=== PATIENT | male | born 1960 | race Caucasian/White ===

== ENCOUNTER 2016-10-19 12:49 | Inpatient (IN) | payer MEDICAID ==
--- NOTE | 2016-10-19 13:27 | ED Physician Chart ---
Chief Complaint/HPI - Patient Information Date Seen:: 10/19/16 Time Seen:: 13:23 Chief Complaint:: WEAKNESSS IN BOTH LEGS, GOT LOST IN [place] History of Present Illness:: This 56-year-old male was brought in by EMS with the chief complaint of weakness in both legs and confusion. One week ago the patient was admitted to a hospital in [place] with the same complaints. He spent the week in the hospital and was discharged yesterday with a walker. The patient has very poor memory of what tests were done and has no idea of the discharge diagnosis. Upon leaving the hospital he was taken to [facility] at the [facility] border. His car had been left there. He then proceeded to drive home and he made it to [place]. His home is in [place] and he is very confused about the sequence of events. He had been stopped by [place] police and EMS was called and they brought him to the hospital. Patient has a past medical history of COPD and prediabetes. He denies any recent head injury, chest pain or abdominal pain. He has no respiratory distress, nausea, vomiting or history of falls. Review of Systems - Review of Systems General/Constitutional: No fever, No chills, Weakness, Diaphoresis Skin: Rash ( The patient has a history of eczema with the main involvement in his feet.) Head: No headache, No light-headedness Eyes: No loss of vision, No diplopia ENT: No earache, No sore throat, No tinnitus Neck: No neck pain, No stiffness, No mass noted Cardio Vascular: No chest pain, No palpitations, No edema Pulmonary: No SOB, No cough, No sputum GI: No nausea, No vomiting, No diarrhea, No pain G/U: No dysuria, No frequency, No hematuria Musculoskeletal: Bone or joint pain, No back pain, No muscle pain Endocrine: No polyuria, No polydipsia Psychiatric: Prior psych history, No depression, No suicidal ideation, No auditory hallucination Hematopoietic: No bruising, No lymphadenopathy Allergic/Immuno: No urticaria, No angioedema Neurological: No syncope, Weakness, No paresthesia, No headache, Confusion Past Medical History - Past Medical History Past Medical History: Asthma/COPD, Other ( History of eczema.) Social History: Smoker ( One half pack of cigarettes per day.), Alcohol ( 2 to 3 beers per day.), No Drug Use, , Lives Alone, Employed ( restaurant front manager.) Surgical History: None Family Medical History - Family Member Mother History Unknown: Yes Physical Exam - Physical Examination General/Constitutional: Awake, Well-developed, well-nourished, Alert, No distress, Non-toxic appearing Other Gen/Cons comments:: The patient was able to stand alone. When he attempted to walk his gait was very white based and unsteady. He was unable to take more than 1 to 2 steps without assistance. Head: Atraumatic Eyes: Lids, conjuctiva normal, PERRL Other Eyes comments:: The patient had Arcus for both eyes. There was mild horizontal nystagmus upon gays to both the left and the right. The sclera were anicteric. Other Skin comments:: Extensive eczema involving both feet. ENMT: External ears, nose nl, Nasal exam nl, Oropharynx nl ( Dental hygiene was poor and the patient is missing 4 teeth) Neck: Nontender, Full ROM w/o pain, No JVD, No nuchal rigidity, No mass Respiratory: Nl effort/Exclusion Other Respiratory comments:: no respiratory distress with occasional wheezes. Cardio Vascular: RRR, No murmur, gallop, rubs, NL S1 S2 ( Excellent pulses in all four extremities.) GI: No tenderness/rebounding/guarding, No organomegaly, No hernia, Normal BS's, Nondistended, No mass/bruits, No McBurney tenderness Other GI comments:: Rectal examination was deferred at my discretion. : No CVA tenderness, NL external genitalia Extremities: No tenderness or effusion, Full ROM Other Extremities comments:: The patient had good seconds grader strength in both upper extremities. He was able to lift both legs to about 2 feet off the gurney. Sensation was intact to light touch. The patient was oriented times three and he thought that the date was October 20. He was cooperative and pleasant but somewhat confused. Neuro/Psych: Mood normal ( Gait was extremely unsteady.) Labs/Radiology/EKG Results - Lab Results Results: Laboratory Tests 10/19/16 10/19/16 10/19/16 14:12 14:12 17:55 WBC 7.1 RBC 4.01 L Hgb 14.5 Hct 42.9 MCV 107.0 H MCH 36.1 H MCHC Differential 33.7 RDW 13.7 Plt Count 231 MPV 7.5 Neutrophils (Manual) 63 Lymphocytes 20 Monocytes 14 H Eosinophils 3 Platelet Estimate ADEQUATE Polychromasia 1+ Macrocytosis 1+ RBC Morph Micro Appear ABNORMAL Sodium 132 L Potassium 4.7 Chloride 102 Carbon Dioxide 26.0 Anion Gap 8.7 BUN 10 Creatinine 1.2 Est GFR ( Amer) > 60.0 Est GFR (Non-Af Amer) > 60.0 BUN/Creatinine Ratio 8.3 Glucose 102 Calcium 10.2 Total Bilirubin 0.6 AST 52 H ALT 72 H Alkaline Phosphatase 61 Total Protein 6.9 Albumin 4.3 Globulin 2.6 Albumin/Globulin Ratio 1.7 Urine Source RANDOM Urine Color YELLOW Urine Clarity CLEAR Urine pH 6.0 Ur Specific [place] 1.025 Urine Protein NEGATIVE Urine Glucose (UA) NEGATIVE Urine Ketones NEGATIVE Urine Blood NEGATIVE Urine Nitrate NEGATIVE Urine Bilirubin NEGATIVE Urine Urobilinogen 0.2 Ur Leukocyte Esterase NEGATIVE Urine RBC NONE SEEN Urine WBC 0-2 Ur Epithelial Cells RARE Urine Bacteria OCCASIONAL Urine Mucus FEW 10/20/16 10/20/16 07:20 07:20 WBC 5.3 D RBC 3.66 L Hgb 13.4 Hct 39.8 MCV 108.9 H MCH 36.7 H MCHC Differential 33.7 RDW 13.5 Plt Count 195 MPV 8.4 Neutrophils (Manual) Lymphocytes Monocytes Eosinophils Platelet Estimate Polychromasia Macrocytosis RBC Morph Micro Appear Sodium 135 L Potassium 4.2 Chloride 109 H Carbon Dioxide 22.7 Anion Gap 7.5 BUN 6 L Creatinine 0.8 Est GFR ( Amer) > 60.0 Est GFR (Non-Af Amer) > 60.0 BUN/Creatinine Ratio 7.5 Glucose 105 Calcium 8.9 Total Bilirubin AST ALT Alkaline Phosphatase Total Protein Albumin Globulin Albumin/Globulin Ratio Urine Source Urine Color Urine Clarity Urine pH Ur Specific [place] Urine Protein Urine Glucose (UA) Urine Ketones Urine Blood Urine Nitrate Urine Bilirubin Urine Urobilinogen Ur Leukocyte Esterase Urine RBC Urine WBC Ur Epithelial Cells Urine Bacteria Urine Mucus The CBC was unremarkable. He was mildly hyponatremic with a sodium of 132. The chloride was elevated at 109. The remaining electrolytes were all within normal parameters. Renal function was normal. He had mild elevation of both the ALT and the AST. Assessment - Assessment General Assessment: CASE SUMMARY: this 56-year-old male was brought to the emergency department by EMS with weakness in both legs and confusion. The patient had been discharged yesterday from a hospital in [place]. He was attempting to drive home to [place] when he became disoriented in [place]. On physical examination he was awake and alert and oriented times three. There was no evidence of any recent head injury. The patient was barely able to stand alone without assistance. He was unable to take more than one or two steps without having to be assisted. Physical examination was negative for any focal neurologic deficit. The patient's laboratory studies did not explain his confusion or weakness and lower extremities. I was concerned that the patient had some neurologic problem which I was missing. I discussed the case with and he was admitted to a medical surge bed for further diagnostic evaluation. The patient thought that he was suffering from heat illness and dehydration. He received 2 L of normal saline in the emergency department with no change in his weakness. MDM CONFUSION/WEAKNESS: NOT Dehydration based on physical examination and laboratory results. NOT Heatstroke based on the patient's vital signs. NOT Acute CVA based on the patient's history and physical examination. ED Septic Shock - . Is Septic Shock (SBP<90, OR Lactate>4 mmol\L) present?: No Reassessment (Disposition) - Reassessment Reassessment Condition:: Unchanged - Diagnosis Diagnosis:: CONFUSION, WEAKNESS IN LEGS UNCLEAR ETIOLOGY. - Patient Disposition Discharge/Transfer:: Acute Care w/in this hosp Accepting Physician:: DR. KERR ED Discharge Plan - Patient Disposition Admit/Discharge/Transfer: Acute Care w/in this hosp Condition at Disposition: Stable
[2016-10-19] MEDS ORDERED: Sodium Chloride 0.9% 2,000 ML IV ONE (13:59)
[2016-10-19 14:18] LABS: HEMATOCRIT 42.9 % (39.0-49.0); HEMOGLOBIN 14.5 gm/dL (13.2-17.3); MEAN CORPUSCULAR HEMOGLOBIN 36.1 pg (26.0-30.0); MEAN CORPUSCULAR HGB CONC 33.7 pg (28.0-36.0); MEAN PLATELET VOLUME 7.5 fl; NEUTROPHILE ABSOLUTE 4.2 Th/cmm (1.8-8.0); PLATELET COUNT 231 Th/cmm (150-400); RED BLOOD COUNT 4.01 Mil/cmm (4.30-5.70); RED CELL DISTRIBUTION WIDTH 13.7 % (11.5-20.0); WHITE BLOOD COUNT 7.1 Th/cmm (4.8-10.8)
[2016-10-19 14:35] LABS: ALB/GLOB RATIO 1.7 (1.0-1.8); ALKALINE PHOSPHATASE 61 U/L (34-104); ANION GAP 8.7 (7.0-16.0); BILIRUBIN,TOTAL 0.6 mg/dL (0.3-1.0); BUN - UREA NITROGEN 10 mg/dL (7-25); BUN/CREATININE RATIO 8.3; CALCIUM SERUM 10.2 mg/dL (8.6-10.3); CHLORIDE 102 mEq/L (98-107); CREATININE - SERUM 1.2 mg/dL (0.7-1.3); GLUCOSE 102 mg/dL (70-105); POTASSIUM SERUM 4.7 mEq/L (3.5-5.1); SGOT 52 U/L (13-39); SGPT/ALT 72 U/L (7-52); SODIUM SERUM 132 mEq/L (136-145)
[2016-10-19 15:34] LABS: EOSINOPHIL 3 % (0-5); NEUTROPHILS 63 % (40-80); TOTAL CELLS COUNTED 100
[2016-10-19 15:35] LABS: PLATELET ESTIMATE ADEQUATE (NORMAL); POLYCHROMASIA 1+
[2016-10-19] MEDS ORDERED: Hydrocodone/APAP 5mg/325mg Tab PO PRN (17:56)
[2016-10-19] MEDS ORDERED: Magnesium Hydroxide (MOM) 30 mL UDC PO PRN (17:56)
[2016-10-19] MEDS ORDERED: Maalox 30 mL Cup PO PRN (17:56)
[2016-10-19 18:46] LABS: URINE BILIRUBIN NEGATIVE (NEGATIVE); URINE BLOOD NEGATIVE (NEGATIVE); URINE GLUCOSE (UA) NEGATIVE (NEGATIVE); URINE KETONE NEGATIVE (NEGATIVE); URINE PROTEIN NEGATIVE (NEGATIVE); URINE UROBILINOGEN 0.2 E.U./dL (0.2 - 1.0)
[2016-10-19 18:58] LABS: URINE BACTERIA OCCASIONAL /hpf (NONE SEEN); URINE COLOR YELLOW; URINE EPITHELIAL CELLS RARE /lpf (FEW); URINE RBC NONE SEEN /hpf (0-5); URINE WBC 0-2 /hpf (0-5)
[2016-10-19] MEDS: D5-0.9%NS 1,000 ML IV SCH (21:36)
[2016-10-20 06:11] VITALS: BP 129/89
--- NOTE | 2016-10-20 08:43 | Diagnostic Imaging Report ---
CHEST X-RAY: AP view INDICATION: Pneumonia COMPARISON: None FINDINGS: Mild chronic lung changes are noted. There is no focal consolidation or pleural effusions The heart is normal in size. The osseous structures demonstrate no acute abnormalities. IMPRESSION: No focal consolidation identified.
--- NOTE | 2016-10-20 08:51 | Diagnostic Imaging Report ---
Head CT without intravenous contrast Indication: Altered mental status Comparison: None Technique: Axial images were obtained from the vertex to the skull base without IV contrast. Coronal reconstructions were made. Total DLP: 639, [id number] FINDINGS: Images of the brain obtained without contrast demonstrate no acute hemorrhage. No mass lesions identified. The ventricles and basal cisterns are patent. The mott-white matter differentiation is preserved. There is no mass effect or midline shift. Mild atrophy is noted. There is minimal fluid in the bilateral mastoid air cells. No skull fractures identified. No soft tissue swelling. The paranasal sinuses are clear. IMPRESSION: No acute intracranial abnormality. Mild atrophy. Minimal fluid within the bilateral mastoid air cells.
[2016-10-20] MEDS: D5-0.9%NS 1,000 ML IV SCH ×2 (08:56→22:06)
[2016-10-20 09:05] LABS: ANION GAP 7.5 (7.0-16.0); BUN - UREA NITROGEN 6 mg/dL (7-25); BUN/CREATININE RATIO 7.5; CALCIUM SERUM 8.9 mg/dL (8.6-10.3); CARBON DIOXIDE 22.7 mEq/L (21.0-31.0); CHLORIDE 109 mEq/L (98-107); CREATININE - SERUM 0.8 mg/dL (0.7-1.3); GLUCOSE 105 mg/dL (70-105); POTASSIUM SERUM 4.2 mEq/L (3.5-5.1); SODIUM SERUM 135 mEq/L (136-145)
[2016-10-20 09:34] LABS: HEMATOCRIT 39.8 % (39.0-49.0); HEMOGLOBIN 13.4 gm/dL (13.2-17.3); MEAN CORPUSCULAR HEMOGLOBIN 36.7 pg (26.0-30.0); MEAN CORPUSCULAR HGB CONC 33.7 pg (28.0-36.0); MEAN PLATELET VOLUME 8.4 fl; PLATELET COUNT 195 Th/cmm (150-400); RED BLOOD COUNT 3.66 Mil/cmm (4.30-5.70); RED CELL DISTRIBUTION WIDTH 13.5 % (11.5-20.0)
[2016-10-20 09:36] LABS: WHITE BLOOD COUNT 5.3 Th/cmm (4.8-10.8)
[2016-10-20 10:20] LABS: MEAN CELL VOLUME 108.9 fl (80-99)
[2016-10-20 11:27] LABS: BASOPHIL 1 % (0-3); EOSINOPHIL 3 % (0-5); NEUTROPHILS 48 % (40-80); TOTAL CELLS COUNTED 100
[2016-10-20 11:28] LABS: PLATELET ESTIMATE ADEQUATE (NORMAL); PLATELET MORPHOLOGY PLATELET CLUMPS SEEN (NORMAL)
--- NOTE | 2016-10-20 13:07 | History & Physical ---
ADMIT DATE: 10/20/2016 CHIEF COMPLAINT: Weakness in both leg and confusion. HISTORY OF PRESENT ILLNESS: The patient is a 56-year-old male brought in by EMS with ____ in both legs and confusion. The patient was previously admitted in hospital in [place] with same complaints. The patient spent a week there and was discharged day before admission with walker. Upon discharge from the [facility], the patient was taking to ____ [facility]. The patient ____ from there ____ [place]. The patient lives in [place] and is very confused about ____. The patient was stopped by [place] Police and EMS was called and the [place] [facility] The patient denies other complaints. REVIEW OF SYSTEMS: See history of present illness. PAST MEDICAL HISTORY: Asthma/COPD, eczema. SOCIAL HISTORY: Positive tobacco use. The patient smokes 1 pack of cigarettes per day. Positive alcohol use. The patient drinks 2 or 3 beers a day. Denies any IV drug use. The patient lives alone. FAMILY HISTORY: Noncontributory. PHYSICAL EXAMINATION: GENERAL: The patient is awake, alert, nontoxic in appearance. VITAL SIGNS: On admission, temperature 98.4, pulse 95, blood pressure 123/85, respiration 18 and O2 sat 100% on room air. HEENT: Normocephalic, atraumatic. Extraocular movements intact. Oropharynx is clear. Dental hygiene is poor. The patient missing 4 teeth. NECK: Supple. No thyromegaly. No lymphadenopathy. RESPIRATORY: Normal effort, occasional wheezes. CARDIOVASCULAR: S1, S2. No murmurs, rubs, gallops. GASTROINTESTINAL: Soft, nontender, nondistended, positive bowel sounds. GENITOURINARY: No CVA tenderness. No suprapubic tenderness. BACK: No midline tenderness. EXTREMITIES: Equal pulses bilaterally. No cyanosis, clubbing or edema. SKIN: Negative. PSYCHIATRIC: Negative. NEUROLOGIC: Cranial nerves 2-12 intact. Extraocular movements intact. Sensation intact. The patient has a gait that is wide based, enough steady. LABORATORY DATA: On admission, hematology, WBC 7.1, hemoglobin 14.5, hematocrit ____, platelet count of 231, 14% monocytes. Chemistry: Sodium 132, potassium 4.7, chloride 102, bicarbonate 26, anion gap 8.7, BUN 10, creatinine ____, GFR is more than 60. Glucose is 102, calcium 10.2, total bili 0.6, AST 52, ALT 72, alk phos 61, total protein 6.9, albumin 4.3, globulin 2.6. Urinalysis negative. RADIOLOGY: Chest x-ray shows no focal consolidation identified. CT of the head, no acute abnormality. Mild atrophy. No fluid in the bilateral mastoid air cells. IMPRESSION: 1. Altered mental status. 2. Bilateral lower extremity weakness. 3. Hyponatremia. 4. Transaminitis. PLAN: The patient admitted [place] [facility] Neurology consultation, Dr. Adams. The patient was ordered for inpatient rehab therapy. We will obtain further labs and consultation as needed. JOB# [id number]
[2016-10-21 06:41] LABS: ALB/GLOB RATIO 1.6 (1.0-1.8); ALKALINE PHOSPHATASE 50 U/L (34-104); ANION GAP 6.7 (7.0-16.0); BILIRUBIN,TOTAL 0.5 mg/dL (0.3-1.0); BUN - UREA NITROGEN 6 mg/dL (7-25); BUN/CREATININE RATIO 7.5; CALCIUM SERUM 9.2 mg/dL (8.6-10.3); CARBON DIOXIDE 24.4 mEq/L (21.0-31.0); CHLORIDE 107 mEq/L (98-107); CREATININE - SERUM 0.8 mg/dL (0.7-1.3); GLUCOSE 102 mg/dL (70-105); POTASSIUM SERUM 4.1 mEq/L (3.5-5.1); SGOT 35 U/L (13-39); SGPT/ALT 56 U/L (7-52); SODIUM SERUM 134 mEq/L (136-145)
[2016-10-21 07:24] LABS: % BASOPHILS 2.3 % (0.0-2.0); % EOSINOPHILS 1.9 % (0.0-5.0); % LYMPHOCYTES 29.9 % (20.0-50.0); % MONOCYTES 14.2 % (2.0-10.0); % NEUTROPHILS 51.7 % (40.0-80.0); MEAN CORPUSCULAR HEMOGLOBIN 36.3 pg (26.0-30.0); MEAN CORPUSCULAR HGB CONC 33.3 pg (28.0-36.0); MEAN PLATELET VOLUME 8.4 fl; NEUTROPHILE ABSOLUTE 3.5 Th/cmm (1.8-8.0); PLATELET COUNT 231 Th/cmm (150-400); RED BLOOD COUNT 3.85 Mil/cmm (4.30-5.70); RED CELL DISTRIBUTION WIDTH 13.4 % (11.5-20.0)
[2016-10-21 08:00] LABS: WHITE BLOOD COUNT 6.5 Th/cmm (4.8-10.8)
[2016-10-21] MEDS: Hydrocodone/APAP 10 mg/325 mg Tab PO PRN ×2 (09:13→15:48)
[2016-10-21] MEDS: D5-0.9%NS 1,000 ML IV SCH ×2 (09:36→20:11)
--- NOTE | 2016-10-21 22:21 | Progress Notes ---
DATE: 10/21/2016 SUBJECTIVE: The patient is awake and alert. The patient had elevated blood pressure today. Awaiting evaluation and clearance by Neurology. OBJECTIVE: VITAL SIGNS: Temperature 98.1, pulse 68 and blood pressure , respiration 20, and O2 sat 98% on room air. CARDIOVASCULAR: S1 and S2. RESPIRATORY: Clear. GASTROINTESTINAL: Abdomen is soft. Positive bowel sounds. LABORATORY DATA: Hematology WBC 6.5, hemoglobin 14.0, hematocrit 42.0, platelet count of 231,000, 14% monocytes, and 2% basophils. Chemistry: Sodium 134, potassium 4.1, chloride 107, bicarb 24, anion gap 6.7 ____, and creatinine 0.8, GFR is 160, glucose 102, calcium 9.2, total bili 0.5. AST 35, ALT 56, alkaline phosphatase is 50, total protein 5.8, albumin 3.6, and globulin 2.2. Microbiology: MRSA screen from 10/19/2016 negative. Blood culture from 10/19/2016 shows no growth. RADIOLOGY: No new results. ASSESSMENT: 1. Hyponatremia. 2. Transaminitis (improved). 3. Hypoalbuminemia. 4. Protein-calorie malnutrition (moderate). 5. Hypertension. 6. Altered mental status (resolved). 7. Bilateral lower extremity weakness (improved). PLAN: Continue current medication and treatment. Obtain labs in a.m. We will start the patient on hydrochlorothiazide for elevated blood pressure. The patient has been started on clonidine on an as needed basis for elevated blood pressure. Continue the patient's rehab therapy. Awaiting Neurology evaluation and clearance. Further recommendation per consultation. JOB# [id number]
[2016-10-22] MEDS: D5-0.9%NS 1,000 ML IV SCH (06:21)
[2016-10-22 07:17] LABS: HEMATOCRIT 40.5 % (39.0-49.0); HEMOGLOBIN 13.6 gm/dL (13.2-17.3); MEAN CORPUSCULAR HEMOGLOBIN 36.4 pg (26.0-30.0); MEAN CORPUSCULAR HGB CONC 33.7 pg (28.0-36.0); MEAN PLATELET VOLUME 8.6 fl; PLATELET COUNT 208 Th/cmm (150-400); RED BLOOD COUNT 3.75 Mil/cmm (4.30-5.70); RED CELL DISTRIBUTION WIDTH 13.1 % (11.5-20.0); WHITE BLOOD COUNT 5.9 Th/cmm (4.8-10.8)
[2016-10-22 07:34] LABS: BUN - UREA NITROGEN 7 mg/dL (7-25); CARBON DIOXIDE 26.1 mEq/L (21.0-31.0); CHLORIDE 107 mEq/L (98-107); CREATININE - SERUM 0.7 mg/dL (0.7-1.3); GLUCOSE 101 mg/dL (70-105); POTASSIUM SERUM 4.1 mEq/L (3.5-5.1); SODIUM SERUM 135 mEq/L (136-145)
[2016-10-22 07:35] LABS: MEAN CELL VOLUME 107.9 fl (80-99)
[2016-10-22 08:24] LABS: BAND NEUTROPHILE 3 % (0-10); NEUTROPHILS 58 % (40-80); PLATELET ESTIMATE ADEQUATE (NORMAL); PLATELET MORPHOLOGY GIANT PLATELETS SEEN (NORMAL); TOTAL CELLS COUNTED 100
--- NOTE | 2016-10-23 08:01 | Consultation ---
DATE OF CONSULTATION: 10/22/2016 NEUROLOGY CONSULT HISTORY OF PRESENT ILLNESS: A 48-year-old male complains of difficulty with confusion. The patient with difficulty walking, unsteadiness. The patient had been in [place]. PAST MEDICAL HISTORY: Asthma, COPD. SOCIAL HISTORY: He does smoke. He does drink. No IV drugs. REVIEW OF SYSTEMS: Twelve point negative except for above. PHYSICAL EXAMINATION: VITAL SIGNS: Temperature 98.2, blood pressure 130/80, pulse is 90. NECK: Supple, no bruits. HEART: Sound S1, S2. LUNGS: Clear. NEUROLOGIC: Awake, alert. ____ answers; he tells me his name, his age, he tells me where he lives. Actually he tells me the day, but he did not know the date. He is able to name simple objects. CRANIAL NERVES: Pupils react to light. Full eye movement. No nystagmus. No facial weakness. MOTOR: He will lift both arms up. Strength is about 4+ to 5. Some tremor. LEGS: He has increased tone with spasticity. The patient's leg strength is about 4+. The patient's reflexes are 2 in the upper extremity, knees are about 3, ankles 1+ to 2. Withdrawal versus Babinski. INVESTIGATIONS: CT scan of the head, no acute process. IMPRESSION: 1. Encephalopathy, better. 2. Cognitive impairment. 3. The patient with ataxia. 4. Leg weakness, somewhat better. 5. The patient with myelopathy. 6. Hyponatremia. PLAN: I will do an MRI cervical spine. We will go ahead and check labs including B12, B1. Physical therapy rehab. JOB# [id number]
[2016-10-23] MEDS: D5-0.9%NS 1,000 ML IV SCH ×2 (08:41→21:12)
--- NOTE | 2016-10-23 13:16 | General Progress Note ---
Subjective - Review of Systems Service Date: 10/23/16 Subjective: Patient is awake and alert. Has been ordered for MRI by Neurology. Receiving inpatient rehab therapy. Objective - Results Result Diagrams: 10/22/16 06:10 10/22/16 06:10 Recent Labs: Laboratory Last Values WBC 5.9 Th/cmm (4.8-10.8) 10/22/16 06:10 RBC 3.75 Mil/cmm (4.30-5.70) L 10/22/16 06:10 Hgb 13.6 gm/dL (13.2-17.3) 10/22/16 06:10 Hct 40.5 % (39.0-49.0) 10/22/16 06:10 MCV 107.9 fl (80-99) H 10/22/16 06:10 MCH 36.4 pg (26.0-30.0) H 10/22/16 06:10 MCHC Differential 33.7 pg (28.0-36.0) 10/22/16 06:10 RDW 13.1 % (11.5-20.0) 10/22/16 06:10 Plt Count 208 Th/cmm (150-400) 10/22/16 06:10 MPV 8.6 fl 10/22/16 06:10 Neutrophils % 51.7 % (40.0-80.0) 10/21/16 05:30 Band Neutrophils % 3 % (0-10) 10/22/16 06:10 Lymphocytes % 29.9 % (20.0-50.0) 10/21/16 05:30 Monocytes % 14.2 % (2.0-10.0) H 10/21/16 05:30 Eosinophils % 1.9 % (0.0-5.0) 10/21/16 05:30 Basophils % 2.3 % (0.0-2.0) H 10/21/16 05:30 Neutrophils (Manual) 58 % (40-80) 10/22/16 06:10 Lymphocytes 27 % (20-50) 10/22/16 06:10 Monocytes 11 % (2-10) H 10/22/16 06:10 Eosinophils 3 % (0-5) 10/20/16 07:20 Basophils 1 % (0-3) 10/20/16 07:20 Atypical Lymphocytes 1 % 10/22/16 06:10 Platelet Estimate ADEQUATE (NORMAL) 10/22/16 06:10 Platelet Morphology GIANT PLATELETS SEEN (NORMAL) 10/22/16 06:10 Polychromasia 1+ 10/19/16 14:12 Macrocytosis 1+ 10/22/16 06:10 RBC Morph Micro Appear ABNORMAL (NORMAL) 10/22/16 06:10 Sodium 135 mEq/L (136-145) L 10/22/16 06:10 Potassium 4.1 mEq/L (3.5-5.1) 10/22/16 06:10 Chloride 107 mEq/L (98-107) 10/22/16 06:10 Carbon Dioxide 26.1 mEq/L (21.0-31.0) 10/22/16 06:10 Anion Gap 6.0 (7.0-16.0) L 10/22/16 06:10 BUN 7 mg/dL (7-25) 10/22/16 06:10 Creatinine 0.7 mg/dL (0.7-1.3) 10/22/16 06:10 Est GFR ( Amer) > 60.0 ml/min (>90) 10/22/16 06:10 Est GFR (Non-Af Amer) > 60.0 ml/min 10/22/16 06:10 BUN/Creatinine Ratio 10.0 10/22/16 06:10 Glucose 101 mg/dL (70-105) 10/22/16 06:10 Calcium 9.0 mg/dL (8.6-10.3) 10/22/16 06:10 Total Bilirubin 0.5 mg/dL (0.3-1.0) 10/21/16 05:30 AST 35 U/L (13-39) 10/21/16 05:30 ALT 56 U/L (7-52) H 10/21/16 05:30 Alkaline Phosphatase 50 U/L (34-104) 10/21/16 05:30 Total Protein 5.8 gm/dL (6.0-8.3) L 10/21/16 05:30 Albumin 3.6 gm/dL (4.2-5.5) L 10/21/16 05:30 Globulin 2.2 gm/dL 10/21/16 05:30 Albumin/Globulin Ratio 1.6 (1.0-1.8) 10/21/16 05:30 TSH 6.20 uIU/ml (0.34-5.60) H 10/23/16 06:06 Urine Source RANDOM 10/19/16 17:55 Urine Color YELLOW 10/19/16 17:55 Urine Clarity CLEAR (CLEAR) 10/19/16 17:55 Urine pH 6.0 (4.6 - 8.0) 10/19/16 17:55 Ur Specific [place] 1.025 (1.005-1.030) 10/19/16 17:55 Urine Protein NEGATIVE mg/dL (NEGATIVE) 10/19/16 17:55 Urine Glucose (UA) NEGATIVE mg/dL (NEGATIVE) 10/19/16 17:55 Urine Ketones NEGATIVE mg/dL (NEGATIVE) 10/19/16 17:55 Urine Blood NEGATIVE (NEGATIVE) 10/19/16 17:55 Urine Nitrate NEGATIVE (NEGATIVE) 10/19/16 17:55 Urine Bilirubin NEGATIVE (NEGATIVE) 10/19/16 17:55 Urine Urobilinogen 0.2 E.U./dL (0.2 - 1.0) 10/19/16 17:55 Ur Leukocyte Esterase NEGATIVE (NEGATIVE) 10/19/16 17:55 Urine RBC NONE SEEN /hpf (0-5) 10/19/16 17:55 Urine WBC 0-2 /hpf (0-5) 10/19/16 17:55 Ur Epithelial Cells RARE /lpf (FEW) 10/19/16 17:55 Urine Bacteria OCCASIONAL /hpf (NONE SEEN) 10/19/16 17:55 Urine Mucus FEW /lpf (FEW) 10/19/16 17:55 - Physical Exam Vitals and I&O: Vital Signs Temp 97.2 F 10/23/16 07:57 Pulse 71 10/23/16 07:57 Resp 20 10/23/16 07:57 BP 129/88 10/23/16 08:42 Pulse Ox 97 10/23/16 07:57 Intake & Output 10/22/16 10/23/16 10/23/16 18:59 06:59 18:59 Intake Total 1000 240 Balance 1000 240 Weight (lbs) 78.216 kg Intake: Intake, IV Amount 1000 D5-0.9%Ns 1,000 ml @ 100 1000 mls/hr IV .Q10H [facility] Rx#: [id number] Oral 240 Other: Stool Characteristics Soft Soft Active Medications: Current Medications Acetaminophen (Tylenol) 650 mg PO Q6H PRN PRN Reason: Mild Pain/Headache/T above 101 Stop: 12/18/16 17:55 Acetaminophen/Hydrocodone Bitart (Perry 10 Mg/325 Mg) 1 tab PO Q6H PRN PRN Reason: Pain (Severe) Stop: 12/18/16 17:55 Last Admin: 10/21/16 15:48 Dose: 1 tab Acetaminophen/Hydrocodone Bitart (Perry 5mg/325mg) 1 tab PO Q6H PRN PRN Reason: Moderate Pain Stop: 12/18/16 17:55 Al Hydrox/Mg Hydrox/Simethicone (Maalox) 30 ml PO Q6H PRN PRN Reason: Dyspepsia Stop: 12/18/16 17:55 Hydrochlorothiazide (Hctz) 25 mg PO DAILY OSMEL Stop: 12/20/16 18:59 Last Admin: 10/23/16 08:42 Dose: 25 mg Dextrose/Sodium Chloride (D5-0.9%Ns) 1,000 mls @ 100 mls/hr IV .Q10H OSMEL Stop: 12/18/16 17:59 Last Admin: 10/23/16 08:41 Dose: 100 mls/hr Lorazepam (Ativan) 1 mg PO Q6H PRN; Protocol PRN Reason: Anxiety/Agitation Stop: 12/18/16 17:55 Magnesium Hydroxide (Milk Of Magnesia) 30 ml PO HS PRN PRN Reason: Constipation Stop: 12/18/16 17:55 Ondansetron HCl (Zofran Odt) 4 mg PO Q6H PRN PRN Reason: Nausea / Vomiting Stop: 12/18/16 17:55 General: Alert, Oriented x3, Cooperative, No acute distress HEENT: Atraumatic, PERRLA, EOMI, Mucous membr. moist/pink Neck: Supple, JVD, Thyromegaly, +2 carotid pulse wo bruit, LAD Cardiovascular: Regular rate, Normal S1, Normal S2 Lungs: Clear to auscultation, Normal air movement Abdomen: Bowel sounds, Soft, no Tender, no Distended Extremities: Other, no Clubbing, no Cyanosis, no Edema, no Tender Neurological: Normal gait, Normal speech, Strength at 5/5 X4 ext, Normal tone, Sensation intact, Cranial nerves 3-12 NL, Reflexes 2+ Skin: Other, no Rash, no Breakdown, no Significant lesion Psych/Mental Status: Mental status NL, Mood NL Assessment/Plan - Problem List Patient Problems: All Active Problems ALTERED MENTAL STATUS; POSSIBLE DEHYDRAT (Acute) - Assessment Assessment: AMS (Resolved) Metabolic Encephalopathy Hypertension Transaminitis Debility - Plan Plan: Continue current meds Continue inpatient rehab Obtain labs in am Awaiting MRI results Awaiting Neurology clearence
--- NOTE | 2016-10-23 13:46 | Diagnostic Imaging Report ---
MRI cervical spine HISTORY: Myelopathy Multiple MR sequences were obtained in the sagittal and axial planes. The exam of the C3-4 level demonstrates a normal disc contour. No extradural abnormalities are seen. The neural foramina appear patent bilaterally. The exam of the C4-5 level demonstrates small spur formation off the anterior margins of these vertebrae. No extradural abnormalities are seen. No significant neural foraminal encroachment. C5-6 level demonstrates a normal disc contour. No extradural abnormalities. Mild hypertrophic changes noted about the facet joints with mild bilateral neural foraminal encroachment. The exam of the C6-7 level demonstrates small spur formation about the vertebral endplates the results in mild extradural indentation on the anterior subarachnoid space. The cervical spinal cord exhibits a normal contour and caliber. No intramedullary abnormalities are seen. The cerebellar tonsils are in a normal position. Bone marrow exhibits normal signal intensity is no significant focal lesions. IMPRESSION: 1. Mild degenerative changes C4-5 and C6-7. 2. No other significant abnormalities
[2016-10-24 07:11] LABS: HEMOGLOBIN 14.6 gm/dL (13.2-17.3); MEAN CORPUSCULAR HEMOGLOBIN 36.5 pg (26.0-30.0); MEAN PLATELET VOLUME 8.8 fl; PLATELET COUNT 214 Th/cmm (150-400); RED BLOOD COUNT 4.01 Mil/cmm (4.30-5.70); RED CELL DISTRIBUTION WIDTH 12.7 % (11.5-20.0); WHITE BLOOD COUNT 6.7 Th/cmm (4.8-10.8)
[2016-10-24 07:30] LABS: MEAN CELL VOLUME 107.3 fl (80-99)
[2016-10-24 07:49] LABS: ANION GAP 7.5 (7.0-16.0); BUN - UREA NITROGEN 11 mg/dL (7-25); BUN/CREATININE RATIO 12.2; CALCIUM SERUM 9.2 mg/dL (8.6-10.3); CARBON DIOXIDE 26.6 mEq/L (21.0-31.0); CHLORIDE 104 mEq/L (98-107); CREATININE - SERUM 0.9 mg/dL (0.7-1.3); GLUCOSE 97 mg/dL (70-105); POTASSIUM SERUM 4.1 mEq/L (3.5-5.1); SODIUM SERUM 134 mEq/L (136-145)
[2016-10-24] MEDS: D5-0.9%NS 1,000 ML IV SCH (08:59)
[2016-10-24 10:40] LABS: NEUTROPHILS 59 % (40-80); PLATELET ESTIMATE ADEQUATE (NORMAL); TOTAL CELLS COUNTED 100
[2016-10-24 10:42] LABS: PLATELET MORPHOLOGY GIANT PLATELETS SEEN (NORMAL)
[2016-10-24 14:22] LABS: FOLIC ACID 4.5 ng/mL (>3.0)
[2016-10-25 09:28] LABS: ALDOLASE 2.9 U/L (3.3-10.3); T4 FREE 0.78 ng/dL (0.82-1.77)
--- NOTE | 2016-11-08 13:14 | Discharge Summary ---
DATE OF DISCHARGE: 10/24/2016 DISCHARGE DIAGNOSES: 1. Altered mental status, resolved. 2. Encephalopathy. 3. Hypertension. 4. Transaminitis. 5. Increased debility. 6. ____ disk disease of cervical spine. HOSPITAL COURSE: The patient is a 56-year-old male who presented to the ER with weakness in both legs and confusion. The patient was admitted with altered mental status, bilateral extremity weakness, hyponatremia, and transaminitis. The patient was initially admitted to telemetry unit at [facility]. Neurology consultation obtained from Dr. Adams. Recommendation from Neurology. The patient obtained MRI of the spine. The patient also obtained B12 and folate levels along with physical therapy. Results of the cervical spine MRI shows moderate disk changes at C4-C5 and C6-C7 levels. HOSPITAL COURSE: The patient is receiving inpatient rehab therapy. After clearance by Neurology, the patient was discharged on 10/24/2016. JOB# [id number]
== END 2016-10-24 15:33 | disposition home or self-care (01) | DRG 52 ==
LOC: ER 12:49 → TELE 18:10
PROVIDERS: ADMIT Preventive Medicine Preventive Medicine/Occupational Environmental Medicine; ATTEND Preventive Medicine Preventive Medicine/Occupational Environmental Medicine
DX: G93.41 Metabolic encephalopathy (principal); E44.0 Moderate protein-calorie malnutrition; E87.1 Hypo-osmolality and hyponatremia; E88.09 Other disorders of plasma-protein metabolism, not elsewhere classified; G95.9 Disease of spinal cord, unspecified; J44.9 Chronic obstructive pulmonary disease, unspecified; I10 Essential (primary) hypertension; R27.0 Ataxia, unspecified; F17.210 Nicotine dependence, cigarettes, uncomplicated; M62.81 Muscle weakness (generalized); R74.0 Nonspecific elevation of levels of transaminase and lactic acid dehydrogenase [LDH]; G31.84 Mild cognitive impairment of uncertain or unknown etiology; Z68.22 Body mass index [BMI] 22.0-22.9, adult; F10.20 Alcohol dependence, uncomplicated
CPT/HCPCS: 36415-UA; 70450-TC; 71010-TC; 72141-TC; 80048-TC; 80053-TC; 81001-TC; 82085-90; 82607-90; 82746-90; 84425-90; 84439-90; 84443-TC; 85007-TC; 85025-TC; 85027-TC; 85652-TC; 86141-TC; 97530; J7030; J7042; X3904; Z7610